=== PATIENT | female | born 1970 | race Caucasian/White ===

== ENCOUNTER 2017-05-26 11:02 | Emergency (ER) | payer SELFPAY ==
[~2017-05-26] VITALS: Ht 165.1 cm; Wt 82.0 kg
[~2017-05-26 11:02] MED LIST: CYCL1PAK PO; PERC5TAB12 PO; PRED20 PO
[2017-05-26 11:03] VITALS: BP 137/71; PULSE 91; RESP 18; TEMP 98.6; O2SAT 98
--- NOTE | 2017-05-26 11:45 | PD ---
Physical Exam Time Seen by Provider: 11:44 Narrative 46yo F c/o infected ingrown toenail x couple weeks. Denies fever, vomiting. Patient seen in triage. VS reviewed. Awaiting bed placement. See next providers note for final patient disposition. Data Data Last Documented VS Vital Signs Date Time Temp Pulse Resp B/P (MAP) Pulse Ox O2 Delivery O2 Flow Rate FiO2 05/26/17 11:03 98.6 91 18 137/71 (93) 98 Room Air MDM Supervised Visit with MARIELLA: Alayna Montoya May 26, 2017 11:45
[2017-05-26] MEDS ORDERED: BACT800T5 PO (13:14)
--- NOTE | 2017-05-26 13:16 | PD ---
HPI Chief Complaint: Skin Problem Time Seen by Provider: 12:44 Travel History International Travel<30 days: No Contact w/Intl Traveler<30days: No Traveled to known affect area: No History of Present Illness HPI 46-year-old female presents to emergency department complaining of left great toe pain for 2 weeks. Patient states that she's been trying to soak her toenail but has become progressively more painful and believes this is an ingrown toenail. Patient is able to move her toe but has been walking with an unusual gait resulting in acute on chronic knee pain. States the pain is moderate, nonradiating, and worse with pressure. Patient denies fevers or chills. Denies trauma. Denies chronic medical conditions. Patient has not followed up with primary care physician regarding this condition. PFSH Past Medical History Diminished Hearing: No Immunizations Current: Yes ?: Not LMP: 05/21/17 Menopausal: No : 4 Para: 3 Miscarriage: 1 : 0 Ectopic : No Ovarian Cysts: No Dilation and Curettage (D&C): No Tubal Ligation: No Past Surgical History Section: No Hysterectomy: No Other Surgery: Yes (breast augmentation.) Social History Alcohol Use: Yes (2 beers daily) Tobacco Use: No Substance Use: No Allergies-Medications (Allergen,Severity, Reaction): Coded Allergies: codeine (Unverified Allergy, Unknown, 05/26/17) penicillin G (Unverified Allergy, Unknown, 05/26/17) Reported Meds & Prescriptions Reported Meds & Active Scripts Active Bactrim DS (Sulfamethoxazole-Trimethoprim) 800-160 Mg Tab 1 Tab PO BID Cyclobenzaprinepax 10 & 0.0375-5 mg & % (Mzkrlvaeptkciay-Tdpzskspw-Qqsm) 10 Mg Tab 10 Mg PO TID PRN 30 Days Percocet 5-325 mg (Oxycodone/Acetaminophen) Oxycodone 5/325 Acetaminophen Tab 1- 2 Tab PO Q6H PRN Deltasone 20 Mg Tab (Prednisone) 20 Mg Tab 60 Mg PO DAILY 5 Days Review of Systems Except as stated in HPI: all other systems reviewed are Neg Physical Exam Narrative GENERAL: Well developed well nourished in no apparent distress SKIN: Focused skin assessment warm/dry. Left great toe-medial aspect tender palpation with exudate present. Unable to easily express fluid from the site. 5 mm area of white bulla with surrounding erythema. No lymphangitic Spread. Erythema limited to the nailbed. HEAD: Atraumatic. Normocephalic. EYES: No scleral icterus. No injection or drainage. ENT: No nasal bleeding or discharge. Mucous membranes pink and moist. NECK: Trachea midline. No JVD. MUSCULOSKELETAL: No obvious deformities. No clubbing. No cyanosis. No edema. Left great toe neurovascularly intact NEUROLOGICAL: Awake and alert. No obvious cranial nerve deficits. Motor grossly within normal limits. Normal speech. PSYCHIATRIC: Appropriate mood and affect; insight and judgment normal. Data Data Last Documented VS Vital Signs Date Time Temp Pulse Resp B/P (MAP) Pulse Ox O2 Delivery O2 Flow Rate FiO2 05/26/17 11:03 98.6 91 18 137/71 (93) 98 Room Air Orders Orders Wound Care (05/26/17 13:47) Ed Discharge Order (05/26/17 13:47) [facility] Medical Decision Making Medical Screen Exam Complete: Yes Emergency Medical Condition: Yes Differential Diagnosis Left great toe, ingrown toenail, paronychia, felnga Narrative Course 46-year-old female presents to emergency department complaining of left great toe pain for 2 weeks. Patient states that she's been trying to soak her toenail but has become progressively more painful and believes this is an ingrown toenail. Patient is able to move her toe but has been walking with an unusual gait resulting in acute on chronic knee pain. States the pain is moderate, nonradiating, and worse with pressure. Patient denies fevers or chills. Denies trauma. Denies chronic medical conditions. Patient has not followed up with primary care physician regarding this condition. Vital signs stable. Physical exam findings consistent with a paronychia versus ingrown toenail. We discussed risks versus benefits of the procedure of complete versus partial toenail removal in addition to the incision and drainage of the probable paronychia. I explained that it is possible that the nailbed may be damaged and result in an abnormal no growth but I advised her that I would avoid this as much as possible. Patient states understanding and agreed to proceed with the procedure. A digital block was performed at the left toe. An incision was made to the medial aspect of the nailbed of great toe. Scant exudate expressed. A small amount of skin tissue was removed from the lateral aspect and partial lateral toenail removal was performed. The nailbed was left in place. Note the patient both had a paronychia and ingrown toenail. Patient placed on Bactrim at home. Patient advised on wound care. Strongly advised follow up with a primary care physician within 2-3 days. Advised follow-up in emergency for signs of infection. Procedures Procedure Narrative INCISION AND DRAINAGE OF ABSCESS: The area was prepped and was sterilely draped. A digital block was performed with 1% lidocaine. 2-1/2 mL used for anesthesia. A number 11 scalpel was used to make a 3mm incision across the area of the abscess. The abscess was drained- scant exudate expressed, complex loculations were broken down, and irrigated with normal saline. Sterile dressing applied. Patient advised to have packing removed in two days. Partial distal toenail removal not including the nailbed was also performed. This noted that a significant amount up to 2 mm of nail was growing directly into the nailbed. Diagnosis Primary Impression: Paronychia of great toe of left foot Additional Impression: Ingrown nail Referrals: [facility] Additional Instructions: Follow-up with primary care physician within 2 days. If her pain worsens or persists return to the emergency department. If he developed increased redness, swelling, or pain return to the emergency department. Take all antibiotics as prescribed. Avoid boots if possible. Wear comfortable athletic shoes. Keep area clean and dry for 24 hours. Afterwardsy ou may bathe as normal. You may use [id number] triple antibiotic ointments for your injury daily. Change dressings daily. If bleeding starts again, applied pressure and elevate the area. Avoid tight fitting shoes. If he developed increased redness, swelling, or pain return to the emergency department. Scripts Sulfamethoxazole-Trimethoprim (Bactrim DS) 800-160 Mg Tab 1 TAB PO BID for Infection, #14 TAB 0 Refills Prov: Afia Russ 05/26/17 Disposition: 01 DISCHARGE HOME Condition: Stable Afia Russ May 26, 2017 13:16
== END 2017-05-26 14:05 | disposition home or self-care (01) ==
LOC: NEPK 11:02
DX: L03.032 Cellulitis of left toe (principal); L60.0 Ingrowing nail; Z79.899 Other long term (current) drug therapy; Z88.5 Allergy status to narcotic agent; Z88.0 Allergy status to penicillin
CPT/HCPCS: 10060